=== PATIENT | male | born 2000 | race Caucasian/White ===

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

== ENCOUNTER 2025-01-04 18:52 | Emergency (ER) | payer OTHER, SELFPAY ==
[2025-01-04] VITALS (9 sets, daily range): BP systolic 122–147; BP diastolic 70–93; PULSE 84–108; RESP 11–20; TEMP 36.2–36.3; O2SAT 96–100
--- NOTE | ~2025-01-04 | CT_ITS ---
EXAMINATION: CT thoracic spine wo con COMPARISON: None HISTORY: PERSON FELL ON PT. STERNUM PAIN. MIDLINE UPPER BACK PAIN TECHNIQUE: Axial images were obtained through the spine without IV contrast. Coronal, sagittal reconstruction images were obtained from the axial views. CT scan performed using dose optimization techniques including the following automated exposure control; adjustment of mA and/or kV; use of iterative reconstruction technique. Automatic exposure control was used to reduce radiation dose. Permanent radiation dose record is archived to PACS. FINDINGS: There are postsurgical changes noted with posterior fixation extending between T4 and T6, the hardware appears intact with no lucency around the screws, there is no acute fracture or subluxation identified. Minimal loss of disc height, no severe canal or foraminal stenosis. Soft tissues demonstrate partially imaged bilateral pneumothoraces incompletely evaluated. Impression: 1. No acute fracture. 2. Bilateral pneumothoraces. CT chest recommended. Reviewed, dictated and finalized at location P. GER CARDIAC Impression: 1. No acute fracture. 2. Bilateral pneumothoraces. CT chest recommended.
--- NOTE | ~2025-01-04 | CT_ITS ---
EXAMINATION:CT diagnostic chest wo con DATE: 01/04/2025 20:03 INDICATION: Apical pneumothoraces. TECHNIQUE: Computed tomography (CT) of the chest was performed without intravenous contrast. Automated exposure control and iterative reconstruction technique were employed. The dose-length product (DLP) was 170.58 mGy-cm. COMPARISON: None. FINDINGS: There is mild scarring at left lung apex. There are small bilateral pneumothoraces. There is a small pneumatocele in right upper lobe. No pleural effusion. The heart size is normal. No pericardial effusion. There are changes of posterior fusion procedure from T4 to T6. There is mild chronic anterior wedging of T5 and T6 vertebral bodies. IMPRESSION: 1. Small bilateral pneumothoraces. Reviewed, dictated and finalized at location E. OSAL DIRECTOR
--- NOTE | ~2025-01-04 | CT_ITS ---
EXAMINATION: CT cervical spine wo con COMPARISON: None HISTORY: PERSON FELL ON PT. LEFT SIDE NECK PAIN. TECHNIQUE: Axial images were obtained through the spine without IV contrast. Coronal, sagittal reconstruction images were obtained from the axial views. CT scan performed using dose optimization techniques including the following automated exposure control; adjustment of mA and/or kV; use of iterative reconstruction technique. Automatic exposure control was used to reduce radiation dose. Permanent radiation dose record is archived to PACS. FINDINGS: The vertebral heights are intact. No fracture or subluxation. The disc heights are intact. Soft tissues there is a partially imaged right apical pneumothorax with a partially imaged trace left apical pneumothorax. Impression: 1. No fracture identified. 2. Partially imaged apical pneumothoraces. CT chest recommended. Findings communicated to the clinical team immediately Reviewed, dictated and finalized at location P. ER ENGINEER Impression: 1. No fracture identified. 2. Partially imaged apical pneumothoraces. CT chest recommended. Findings commu nicated to the clinical team immediately
--- NOTE | ~2025-01-04 | CT_ITS ---
EXAMINATION: CT brain wo con COMPARISON: None HISTORY: PERSON FELL ON PT. LEFT POSTERIOR HEAD PAIN. TECHNIQUE: Axial images were obtained through the brain without IV contrast. CT scan performed using dose optimization techniques including the following automated exposure control; adjustment of mA and/or kV; use of iterative reconstruction technique. Automatic exposure control was used to reduce radiation dose. Permanent radiation dose record is archived to PACS. FINDINGS: No acute infarct or parenchymal hemorrhage. No abnormal mass or mass effect. No midline shift. No extra-axial fluid collections. No hydrocephalus. . Mastoid air cells unremarkable. Sinuses and orbits unremarkable. No acute fracture. No significant facial or scalp soft tissue swelling evident. No radiopaque foreign body is seen. Impression: 1.No acute intracranial abnormality. Reviewed, dictated and finalized at location P. NT SUPPORT ANALYST Impression: 1.No acute intracranial abnormality.
--- OUTSIDE RECORDS SUMMARY | 2025-01-04 18:54 | XMS_ITS | Clinical Summary ---
Author Organization [facility] [address] Address [address] [place] [address] Care Team Providers Care Lumber Mover Name Role Phone Darrin Reinoso MD Primary Care Provider Allergies No known active allergies Medications No known medications Active Problems Problem Noted Date Diagnosed Date Vitamin D deficiency 07/10/2024 Assessment & Plan (07/10/2024 4:51 PM CDT): - new, noted 07/13 - start OTC vitamin D3 supplements 5K international units daily Pure hypercholesterolemia 07/10/2024 Overview (07/15/2024): New/noted on lab work 07/13 - I had a talk with my family and found out that we have history of high cholesterol, heart disease and strokes. My Dad has high cholesterol, high blood pressure, and is a diabetic. My grandma on my mom s side had a stroke and high blood pressure. She as well had kidney failure. My grandma on my dad s side had heart disease. My grandpa on my dad s side had a stroke. I will start taking vitamin D. Elevated LFTs 07/10/2024 Overview (07/10/2024): New, noted 07/13 - recheck in 3 months Preventative health care 07/09/2024 Assessment & Plan (07/09/2024 8:19 AM CDT): - New or chronic worsening conditions: no significant acute issues on this visit - Mental health: no significant psychiatric/mental health conditions affecting her day to day functioning - Dental health: Recommend regular dental care and cleaning. Discussed importance of regular tooth brushing, flossing, and dental visits. - Nutrition: Recommend moderation in sodium/caffeine intake, saturated fat and cholesterol, caloric balance, sufficient intake of fresh fruits, vegetables - Exercise: Recommend to exercise at least 30 minutes moderate to vigorous exercise most days of the week. 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 Resolved Problems Problem Noted Date Diagnosed Date Resolved Date Bone lesion 09/25/2014 07/09/2024 Encounters Date Type Department Care Team Description 11/28/2024 3:15 PM CDT Clinical Support [facility] Primary Care at [address] [address] from Last 3 Months Immunizations Immunization Administration Dates Next Due DTaP 05/24/2007, 4,01/08/2003,11/07,2002 HPV, Quadrivalent 01/20/2014,09/16/2013,07/18/19 14 Hep A, Pediatric 07/17/2013,07/10/2012 Hep B, Adolescent or Pediatric 04/13/2003,2002,2002 Hib (PRP-OMP) 01/12/2004,2002,2002 IPV 05/24/2007, 3,2002,09/05 Influenza, Quadrivalent, Missy l Culture-based MDCK, Preservative Free, Antibiotic Free, Intramuscular 12/20/2021 Influenza, Quadrivalent, Spl it, Intramuscular 11/30/2018 Influenza, Quadrivalent, Spl it, Preservative Free, Intramuscular 12/15/2020,11/24/2019,11/30/2018,12/02,12/01/2017,11/29/2013 Influenza, Trivalent, IM (MDV) 11/29/2016,2012 Influenza, Trivalent, Preser vative Free, Intramuscular 11/28/2024,10/23/2015,12/11/2014 Influenza, Trivalent, Recomb inant, Egg Free, Preservative Free, Antibiotic Free, IM (FLUBLOK) 12/14/2023 Influenza, Unspecified 07/09/2024(Deferr ed: Patient Refused),02/19/2023(Deferred: Patient Refused) MMR 05/24/2007,10/08/2003 Meningococcal B, OMV (Bexsero) 12/31/2019,2019 Meningococcal Conjugate (Menveo) 11/24/2019 Meningococcal MCV4P (Menactra) 07/17/2013 Pneumococcal Conjugate 7-Valent 01/12/20 04,01/08/2003,2002,09/05 Tdap 07/17/2013 Varicella 05/24/2007,07/16/2003 Surgical History Surgery Date Site/Laterality Comments OTHER SURGICAL HISTORY bilateral ear tubes OTHER SURGICAL HISTORY osteoblastoma: tumor removed from spine Medical History Medical History Date Comments Hx Other Medical osteoblastoma Family History Medical History Relation Name Comments Diabetes Paternal Grandmother Diabete s mellitus; Hypertension Paternal Grandmother Hyperte nsion; Relation Name Status Comments Father Alive Mother Alive Paternal Grandmother Sister Alive Social History Tobacco Use Types Packs/Day Years Used Date Smoking Tobacco: Never Smokeless Tobacco: Never Tobacco Cessation:Counseling Given: No PHQ-2 Answer Date Recorded PHQ-2 Total Score (If total score is 3 or more points, staff should administer the PHQ-9) 0 07/09/2024 Sex and Gender Information Value Date Recorded Sex Assigned at Not on file 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 Gender Identity Not on file Sexual Orientation Not on file Last Filed Vital Signs Vital Sign Reading Time Taken Comments Blood Pressure 128/76 07/09/2024 7:55 AM CDT Pulse 80 07/09/2024 7:55 AM CDT Temperature 36.8 C (98.2 F) 07/09/2024 7:55 AM CDT Respiratory Rate 18 11/22/2023 2:42 PM CDT Oxygen Saturation 98% 07/09/2024 7:55 AM CDT Inhaled Oxygen Concentration - - Weight 66 kg (145 lb 8 oz) 07/09/2024 7:55 AM CD T Height 177.8 cm (5' 10) 07/09/2024 7:55 AM CDT Body Mass Index 20.88 07/09/2024 7:55 AM CDT Plan of Treatment Health Maintenance Due Date Last Done Comments DTaP/Tdap/Td Vaccine (7 - Td or Tdap) 07/18/2023 07/17/2013, 05/24/2007, 01/12/2004, Additional history exists Covid-19 Vaccine ( - 2024-2 6 season) 2024 06/15/2020, 05/25/2020 Depression Screening 07/09/2025 07/09/2024 Regular Well Visit/Exam 18-64 07/09/2025 07/09/2024 Hepatitis B Screening Completed 04/13/2003 , 2002, 2002 Pneumococcal vaccine <65 Completed 004, 01/08/2003, 2002, Additional history exists Varicella Vaccines Completed 05/24/2007, 07/16/2003 HPV Vaccines Completed 01/20/2014, 08/20, 07/17/2013 Meningococcal B Vaccine Completed 12/31/2019, 11/23 Hepatitis C Screening Completed 07/09/2024 Influenza Vaccine Completed 11/28/2024, , 12/20/2021, Additional history exists Procedures Procedure Name Priority Date/Time Associated Diagnosis Comments HEPATITIS C ANTIBODY Routine 07/09/2024 8:31 AM CDT Encounter for hepatitis C screening test for low risk patient from Last 3 Months or Most Recently Relevant to Health Maintenance Results * Hepatitis C antibody Blood (07/09/2024 8:31 AM CDT) Hep C Ab Nonreactive Nonreactive Comment: Interpretive Data Nonreactive: Antibodies to HCV not detected. Does NOT exclude the possibility of recent exposure to HCV. Equivocal: Equivocal for HCV antibodies. Supplemental molecular testing will be automatically performed to determine infection status in accordance with current CDC screening recommendations. Reactive: Positive for HCV antibodies. This may represent current or past HCV infection. Supplemental molecular testing will be automatically performed to determine current infection status in accordance with current CDC screening recommendations. Interpretive data was last revised on 2019. Blood 07/09/2024 8:31 AM CDT 07/09/2024 3:59 PM CDT us Darrin Reinoso MD LAB MICROBIOLOGY - [facility] ORDERABLES Final Result [id number] [place] [address] from Last 3 Months or Most Recently Relevant to Health Maintenance Insurance [facility]/PPO Address: [address] [address] [place] [address] [facility] [employer]/PPO Address: [address] [address] [place] [address] Care Teams Lumber Mover Relationship Specialty Start Date End Date Darrin Reinoso MD [address] [place] [address] [address] [place] [address] PCP - General Family Medicine 07/09/24
--- NOTE | 2025-01-04 18:57 | ED_ITS ---
HPI - Fall General Chief Complaint: Fall Stated Complaint: injury Time Seen by Provider: 01/04/25 18:55 Source: patient Mode of arrival: ambulatory Limitations: no limitations History of Present Illness HPI Narrative: Patient is a 24-year-old male playing basketball today and accidentally fell and hit the back of his head on the concrete. Patient also landed on the mid of his back and having thoracic spine pain. No open wounds on the head or neck. He is not particularly having cervical spine pain but more so upper thoracic pain. No nausea vomiting or diarrhea. No fever chills. No loss of consciousness. MD complaint: fall Onset (ago): hour(s) (One) Fall from: standing Fall witnessed: yes, by bystander Place fall occurred: street Loss of consciousness: none Prolonged down time: no Symptoms prior to fall: none Context: tripped/slipped Location of injury: head (Posterior/occipital region) and back (Upper thoracic spine midline more so to the right of the spine) Location of injury - extremities: Right: elbow Severity: moderate Severity scale (1-10): 5 Quality: sharp Associated symptoms (after fall): headache Related Data Home Medications ?Medication ?Instructions ?Recorded ?Confirmed ?Last Taken ?Type No Home Medications 11/23/21 02/20/23 U nknown History Allergies Allergy/AdvReac Type Severity Reaction Status Date / Time No Known Allergies Allergy Unverified 02/20/23 13:52 Review of Systems Review of Systems: All systems reviewed & are unremarkable except as noted in HPI and below Constitutional: Constitutional: Reports no additional constitutional complaints Eyes: Eyes: Reports no additional eye complaints ENT: Reports system reviewed and no additional complaints, except as documented Cardiovascular: Cardiovascular: Reports no additional cardiovascular complaints Respiratory: Respiratory: Reports no additional respiratory complaints Gastrointestinal: Gastrointestinal: Reports no additional gastrointestinal complaints Genitourinary: Genitourinary: Reports no additional male genitourinary complaints Musculoskeletal: Musculoskeletal: Reports no additional musculoskeletal complaints Integumentary/Breasts: Skin/Breast: Reports system reviewed and no additional complaints, except as docu Neurologic: Reports system reviewed and no additional complaints, except as documented Psychiatric: Psychiatric: Reports no additional psychiatric complaints Endocrine: Endocrine: Reports no additional endocrine complaints Hematologic/Lymphatic: Hematologic/Lymphatic: Reports no additional hematologic/lymphatic complaints Allergic/Immunologic: Allergic/Immunologic: Reports no additional allergic/immunologic complaints [facility] Past Medical History Medical History Patient denies medical problems Surgical History Surgical History Tumor tumor removed from spine 2015 Family History Family History Father Hypertension Mother Thyroid disorder Grandparent Hypertension Depression Cerebrovascular accident Diabetes mellitus Social History Social History Smoking status: Never smoker Second hand tobacco smoke exposure: No Alcohol intake: never Substance use: unknown Current Housing: Decline to Answer Concerned About Future Housing: Decline to Answer Difficulty Paying Gas/Electric Bills: Decline to Answer Difficulty Paying for Meds: Decline to Answer Currently Unemployed: Decline to Answer Education: Decline to Answer Difficulty w/ Childcare or Family Care: Decline to Answer Exam Const: General: healthy appearing Nutritional Appearance: well nourished Orientation/consciousness: patient oriented x3 HENMT: Head: normal to inspection Ears: external ears normal Face/Nose/Sinus: Normal external nose present Eyes: Conjunctivae: conjunctivae normal Pupils: Equal, round and reactive pupils present EOM: EOMs intact bilaterally Neck: Neck: normal visual inspection Chest: Chest palpation & inspection: normal inspection of the chest Resp: Effort & Inspection: normal respiratory effort and not labored Auscultation: clear to auscultation bilaterally and no crackles Cardio: Rate: regular rate Rhythm: regular rhythm Heart sounds: no murmurs GI: Inspection: non-distended GI Palp: Yes Soft to palpation and No Tenderness to palpation present (GI) Auscultation: normal bowel sounds : General: Yes bladder normal to palpation Back/Spine/Pelvis: Back: no CVA tenderness Skin: General skin exam: normal color Rashes: no rashes Wounds: wound noted Other: Abrasions of the right elbow and the left lower back Neuro: General: patient oriented x3, moves all extremities, no meningeal sig ns, no focal motor deficits and CN's II-XI intact bilaterally Cranial nerves: Yes Nystagmus not present Speech: normal speech Gait exam (Neuro): Normal gait present Extrem: General: normal to inspection, no clubbing, cyanosis or edema and no pedal edema Psych: Mental Status: mental status grossly normal Affect: normal affect Attitude: cooperative Course Vital Signs Vital signs: Vital Signs Temperature 36.3 C L 01/04/25 18:52 Pulse Rate 97 01/04/25 18:52 Respiratory Rate 20 01/04/25 18:52 Blood Pressure 132/71 01/04/25 18:52 Pulse Oximetry 100 01/04/25 18:52 Oxygen Delivery Room Air 01/04/25 18:52 Temperature 36.3 C L 01/04/25 18:52 Pulse Rate 108 H 01/04/25 20:15 Respiratory Rate 11 L 01/04/25 20:15 Blood Pressure 122/93 H 01/04/25 20:15 Pulse Oximetry 97 01/04/25 20:15 Oxygen Delivery Room Air 01/04/25 20:15 MDM - Fall MDM Narrative Medical decision making narrative: Patient is a 24-year-old male with a ground level fall to the back of his head and mid to upper thoracic spine. We will get CT scans at this time. Pain control. Transfer to [facility] for higher level medical care. Imaging Data Attestation: I personally reviewed and interpreted this imaging study as follows: Radiologist's impression: See CT scan of the head is negative for acute process CT scan of the cervical spine is negative for acute process; pneumothorax seen CT scan of the thoracic spine is negative for acute process; pneumothorax seen CT scan of the chest without contrast shows a right-sided pneumothorax a 12% and a left-sided pneumothorax a 1% Critical Care Time Critical Care Time Critical Care Time: Yes Total Critical Care Time: 40 Discharge Plan Discharge Clinical Impression: Bilateral pneumothorax, Trauma Head injury Qualifiers: Encounter type: initial encounter Qualified Code(s): S09.90XA - Unspecified injury of head, initial encounter Patient Disposition: Acute Care Hospital Condition: Stable Patient Language: Hong Konger Prescriptions: No Action No Home Medications Follow-up/Referrals: UNKNOWN,DOCTOR [Non-Staff] Time of Disposition: 20:34
--- NOTE | 2025-01-04 19:07 | PC.NURSE ---
DR PERKINS AT THE BEDSIDE
--- NOTE | 2025-01-04 19:25 | PC.NURSE ---
CURRENTLY IN RADIOLOGY VIA STRETCHER
[2025-01-04] MEDS: IBUPROFEN 600 MG TABLET PO (19:34)
--- NOTE | 2025-01-04 19:50 | PC.NURSE ---
PATIENT IS RESTING ON STRETCHER. PLACED PATIENT ON DOOR FRAMER.
--- NOTE | 2025-01-04 19:59 | PC.NURSE ---
PATIENT TRANSPORTED BACK TO CT VIA STRETCHER. DR PERKINS WAS AT THE BEDSIDE AND EXPLAINED RESULTS OF FIRST CT
--- NOTE | 2025-01-04 20:11 | PC.NURSE ---
DR PERKINS AT THE BEDSIDE
--- NOTE | 2025-01-04 20:45 | PC.NURSE ---
PATIENT IS RESTING ON STRETCHER. RESP EVEN AND UNLABORED. REPORTS THAT HE IS FEELING BETTER WHILE SITTING ON STRETCHER.
== END 2025-01-04 21:25 | disposition short-term general hospital (02) ==
PROVIDERS: Emergency Provider Emergency Medicine; PCP Family Medicine
DX: S27.0XXA Traumatic pneumothorax, initial encounter (principal); S09.90XA Unspecified injury of head, initial encounter; W18.30XA Fall on same level, unspecified, initial encounter
CPT/HCPCS: 70450; 71250; 72125; 72128; 99291; A9270